=== PATIENT | female | born 1975 ===

== ENCOUNTER → 2019-07-12 | Outpatient (CLI) | payer OTHER ==
[~2019-07-12] MED LIST: BIRTH CONTROL; CEPH500 PO; HYDACE5 PO
== END ==
LOC: OLS 11:19 → LAB SHORT 11:19 → LAB FUT 07-11 08:55 → EDSTATUS 07-11 08:55
DX: R35.0 Frequency of micturition (principal)
CPT/HCPCS: 87077; 87086; 87186

== ENCOUNTER → 2021-04-30 | Outpatient (CLI) | payer OTHER ==
[2021-05-02 13:12] LABS: HPV 16 Negative (Negative); HPV 18 Negative (Negative); HPV OTHER HR TYPES Negative (Negative)
== END ==
LOC: LAB SHORT 09:10
PROVIDERS: Registered Nurse Community Health
DX: Z12.4 Encounter for screening for malignant neoplasm of cervix (principal)
CPT/HCPCS: 87624; G0123